=== PATIENT | male | born 2000 | race Caucasian/White ===

== ENCOUNTER 2023-05-19 09:11 | Emergency (ER) | payer MEDICAID ==
[~2023-05-19] VITALS: Ht 172.7 cm; Wt 64.9 kg
[2023-05-19 09:21] VITALS: BP 125/77; PULSE 71; RESP 20; TEMP 98; O2SAT 99
--- NOTE | 2023-05-19 09:28 | NUR ---
PT AMBULATED TO BED 9
--- NOTE | 2023-05-19 09:33 | NUR ---
MD GROVES AT BEDSIDE FOR EVALUATION
[2023-05-19] MEDS ORDERED: FLUORESCEIN OPTH STRIP 1 MG OP ONE (09:35)
[2023-05-19] MEDS ORDERED: TETRACAINE HCL/PF 0.5% OPTH 4 ML BTL OP ONE (09:35)
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
--- NOTE | 2023-05-19 10:00 | NUR ---
Patient discharged with v/s stable. Written and verbal after care instructions given and explained. Patient verbalized understanding. Ambulatory with steady gait. All questions addressed prior to discharge. Advised to follow up with PMD.
== END 2023-05-19 10:00 | disposition home or self-care (01) ==
LOC: MED 09:11
DX: H57.12 Ocular pain, left eye (principal); Z79.899 Other long term (current) drug therapy
CPT/HCPCS: 90471; 90715; 99283